=== PATIENT | male | born 1985 | race Caucasian/White ===

== ENCOUNTER 2025-02-14 21:03 | Emergency (ER) | payer SELFPAY ==
[~2025-02-14] VITALS: Ht 188 cm; Wt 87.0 kg
[2025-02-14 21:12] VITALS: TEMP 36.2; O2SAT 100
[2025-02-14] MEDS ORDERED: LIDOCAINE HCL/EPINEPHRINE 1%-EPI 1:100,000 20ML VIAL INFIL ONE (21:30)
[2025-02-14] MEDS: TETANUS, DIPHTHERIA, PERTUSSIS VAC/PF 0.5ML (>10YR OLD) IM ONE (21:52)
[2025-02-14] MEDS ORDERED: CEPH500C2 MT (23:14)
[2025-02-14 23:38] VITALS: BP 130/87; PULSE 112; RESP 19; O2SAT 100
== END 2025-02-14 23:47 | disposition home or self-care (01) ==
LOC: ER 21:03
DX: S01.81XA Laceration without foreign body of other part of head, initial encounter (principal); W19.XXXA Unspecified fall, initial encounter; Y93.89 Activity, other specified; Y92.89 Other specified places as the place of occurrence of the external cause; Y99.8 Other external cause status
CPT/HCPCS: 99284; 70450; 72125; 12015; J2004; 90715